=== PATIENT | male | born 1955 | race Caucasian/White ===

== ENCOUNTER 2018-01-02 01:25 | Emergency (ER) | payer OTHER ==
[~2018-01-02] VITALS: Ht 185.4 cm; Wt 86.2 kg
[~2018-01-02 01:25] MED LIST: CYCL10TA45 GT; NAPR-243 PO
--- OUTSIDE RECORDS SUMMARY | 2018-01-02 01:32 | XMS REPORT | Continuity of Care Document ---
Author Author [facility] Organization [facility] Address Unknown Phone Unavailable Allergies Active Description Code Type Severity Reaction Onset Reported/Identified Relationship to Patient Clinical Status Yes Penicillins [id number] Drug Allergy Moderate RASH 01/16/2012 Yes Sulfa (Sulfonamide Antibiotics) [id number] Drug Allergy Mild RASH 2011 Medications There is no data. Problems Date Dx Coded Attending Type Code Diagnosis Diagnosed By 10/11/2015 KEY GARCIA MD, Ot B42.89 10/11/2015 KEY GARCIA MD Ot F17.210 10/13/2015 KEY GARCIA MD, Ot B42.89 10/13/2015 KEY GARCIA MD Ot F17.210 03/02/2016 SALUD FERNANDEZ MD Ot M25.532 PAIN IN LEFT WRIST 03/02/2016 SALUD FERNANDEZ MD Ot M79.642 PAIN IN LEFT HAND 03/02/2016 SALUD FERNANDEZ MD Ot R22.32 LOCALIZED SWELLING, MASS AND LUMP, LEFT 03/03/2016 SALUD FERNANDEZ MD Ot M25.532 PAIN IN LEFT WRIST 03/03/2016 SALUD FERNANDEZ MD Ot M79.642 PAIN IN LEFT HAND 03/03/2016 SALUD FERNANDEZ MD Ot R22.32 LOCALIZED SWELLING, MASS AND LUMP, LEFT 03/16/2016 SALUD FERNANDEZ MD Ot M25.532 PAIN IN LEFT WRIST 03/16/2016 SALUD FERNANDEZ MD Ot M79.642 PAIN IN LEFT HAND 03/16/2016 SALUD FERNANDEZ MD Ot R22.32 LOCALIZED SWELLING, MASS AND LUMP, LEFT Procedures There is no data. Results There is no data. Encounters ACCT No. Visit Date/Time Discharge Status Pt. Type Provider Facility Loc./Unit Complaint [id number] 03/01/2016 18:19:00 03/01/2016 23:59:59 CLS Outpatient REBECCA GROSS, SALUD Moser [facility] RAD L HAND XRAY,L WRIST XRAY [id number] 10/11/2015 16:00:00 10/11/2015 17:38:00 DIS Emergency RADHA GROSS, KEY Moser [facility] ER [id number] 01/20/2014 16:29:00 01/20/2014 23:59:59 CLS Outpatient [id number] 03/15/2013 08:16:00 03/15/2013 23:59:59 CLS Outpatient [id number] 02/20/2013 19:08:00 02/21/2013 13:30:00 DIS Inpatient
--- NOTE | 2018-01-02 01:44 | ED Lower Extremity ---
General Chief Complaint: Lower Extremity Stated Complaint: LEFT FOOT PAIN-BOAT DROPPED ON FOOT Source: patient, spouse Exam Limitations: no limitations History of Present Illness Date Seen by Provider: Jan 02, 2018 Time Seen by Provider: 01:31 Initial Comments The patient presents to the ER by private conveyance with his significant other and chief complaint that Monday evening over 24 hours ago he was moving a boat around the garage and it fell off the german stand with the tongue landing across to his left foot. He is having pain more laterally in his foot as well as in the bilateral malleoli of his ankle. He did not get seen for this until tonight because the pain and swelling have progressively gotten worse. At first ice and Aleve were enough to control his pain and swelling. He has not been keeping the foot wrapped for elevated he did go to work yesterday. He does not have a history of fracture or injury to the left foot and ankle. He is able to walk on it. He is not on blood thinners. Allergies and Home Medications Allergies Coded Allergies: Penicillins (Verified Allergy, Intermediate, RASH, 01/16/12) Sulfa (Sulfonamide Antibiotics) (Verified Allergy, Mild, RASH, 01/16/12) Patient Home Medication List Home Medication List Reviewed: Yes Constitutional: No chills, No diaphoresis EENTM: No hearing loss, No ear pain Respiratory: No cough, No phlegm, No short of breath Cardiovascular: No chest pain, No palpitations Gastrointestinal: No abdominal pain, No nausea Past Iapyxqa-Ukasmw-Hrbwtz Hx Patient Social History Alcohol Use: Occasionally Uses Recreational Drug Use: No Smoking Status: Never a Smoker 2nd Hand Smoke Exposure: No Recent Foreign Travel: No Contact w/Someone Who Travel: No Recent Hopitalizations: No Immunizations Up To Date Tetanus Booster (TDap): Less than 5yrs Date of Influenza Vaccine: Apr 16, 2015 Seasonal Allergies Seasonal Allergies: No Past Medical History Surgeries: Yes Appendectomy, Orthopedic Respiratory: No Cardiac: No Neurological: No Reproductive Disorders: No Sexually Transmitted Disease: No HIV/AIDS: No Genitourinary: No Gastrointestinal: No Musculoskeletal: No Endocrine: No HEENT: No Cancer: No Psychosocial: No Integumentary: No Blood Disorders: No Adverse Reaction/Blood Tranf: No Family Medical History No Pertinent Family Hx Physical Exam Vital Signs Vital Signs - First Documented 01/02/18 01:30 Temp 97.6 Pulse 77 Resp 18 B/P (MAP) 169/103 (125) Pulse Ox 96 O2 Delivery Room Air Capillary Refill : General Appearance: WD/WN, no apparent distress Cardiovascular: normal peripheral pulses, regular rate, rhythm Respiratory: no respiratory distress, no accessory muscle use Legs: bilateral leg non-tender, bilateral leg normal inspection, bilateral leg normal range of motion, bilateral leg no evidence of injury Ankles: right ankle non-tender, right ankle normal inspection; bilateral ankle normal range of motion; right ankle no evidence of injury; left ankle bone tenderness (bilateral malleoli), left ankle ecchymosis, left ankle joint effusion, left ankle pain, left ankle soft tissue tenderness, left ankle swelling Feet: right foot non-tender, right foot normal inspection; bilateral foot normal range of motion; right foot no evidence of injury; left foot bone tenderness (third fourth and fifth metatarsals), left foot ecchymosis, left foot pain, left foot soft tissue tenderness, left foot swelling Neurologic/Tendon: normal sensation, normal motor functions, normal tendon functions, responds to pain, no evidence tendon injury Neurologic/Psychiatric: no motor/sensory deficits, alert, normal mood/affect, oriented x 3 Skin: warm/dry, ecchymosis Progress/Results/Core Measures Results/Orders My Orders Orders - ANTOINETTE PICKENS Foot, Left, 3 Views (01/02/18 01:36) Ankle, Left, 3 Views (01/02/18 01:36) Hydrocodone/Apap 5/325 Tablet (Lortab 5 (01/02/18 01:45) Medications Given in ED Current Medications Medications Dose Ordered Sig/Luisito Route Start Time Stop Time Status Last Admin Dose Admin Acetaminophen/ Hydrocodone Bitart 1 tab ONCE ONCE PO 01/02/18 01:45 01/02/18 01:46 DC 01/02/18 01:54 1 TAB Vital Signs/I&O 01/02/18 01:30 Temp 97.6 Pulse 77 Resp 18 B/P (MAP) 169/103 (125) Pulse Ox 96 O2 Delivery Room Air Progress Progress Note : Time: 01:41 Progress Note We have offered him some hydrocodone for his pain and we'll obtain x-rays of the ankle and foot. Diagnostic Imaging Diagonstic Imaging: Xray Plain Films/CT/US/NM/MRI: ankle (and left foot) Comments Soft tissue swelling seen but no overt osseous abnormality noted on any ankle and foot x-ray. Reviewed: Reviewed by Me Departure Impression Primary Impression: Contusion of ankle Qualified Codes: S90.02XA - Contusion of left ankle, initial encounter Additional Impression: Contusion of foot Qualified Codes: S90.32XA - Contusion of left foot, initial encounter Disposition: 01 HOME, SELF-CARE Condition: Stable Departure-Patient Inst. Decision time for Depature: 01:56 Referrals: IRA HI RICK D MD (PCP) Primary Care Physician Patient Instructions: Ankle Sprain (DC) Add. Discharge Instructions: Keep the foot and ankle elevated when possible. Apply a Abner bandage for compression and use ice for 20 minutes every 3-4 hours as needed for swelling or pain. You can also use Tylenol 650 mg every 8 hours and ibuprofen 800 mg every 8 hours or 2 Aleve twice a day instead of the ibuprofen. If you have breakthrough pain you can use one tablet of hydrocodone every 6 hours as needed. And hydrocodone will cause drowsiness and constipation so you should not mix it with alcohol and be careful when driving long distances or operating heavy machinery. You can use MiraLAX 1 capful in 6-8 ounces of fluids every day to stay regular or reverse constipation that is typical with hydrocodone. Your pain and swelling is not improved within the first 2-4 weeks you can follow up with your primary care doctor or Dr. Hi, orthopedic surgeon from [facility]. All discharge instructions reviewed with patient and/or family. Voiced understanding. Scripts Hydrocodone Bit/Acetaminophen (Hydrocodone/Acetaminophen 5/325mg Tablet) 1 Tab Tab 1-2 EACH PO Q6H PRN for BREAKTHROUGH PAIN, #15 TAB 0 Refills Prov: ANTOINETTE PICKENS 01/02/18 Work/School Note: Work Release Form Date Seen in the Emergency Department: Jan 02, 2018 Return to Work: Jan 02, 2018 Restrictions: Need Release from Doctor Other Restrictions Listed Below: Elevate ankle when possible. Apply ice for 20 minutes every 4 h for 2 days. Copy Copies To 1: IRA HI TITUS J Jan 02, 2018 01:44
[2018-01-02] MEDS ORDERED: HYDROcodone/APAP 5 MG/325 MG (LORTAB) TAB PO ONE (01:45)
[2018-01-02] MEDS ORDERED: ACHD5005 PO (01:58)
[2018-01-02 02:05] VITALS: BP 169/103
--- NOTE | 2018-01-02 07:11 | Diagnostic Imaging Report ---
INDICATION: Left foot injury and pain COMPARISON: None FINDINGS: 3 views of the left foot demonstrate no fracture or dislocation. Articular surfaces are normal. No foreign body seen. IMPRESSION: No fracture or dislocation. Dictated by: Dictated on workstation # [id number]
--- NOTE | 2018-01-02 07:27 | Diagnostic Imaging Report ---
INDICATION: Left ankle trauma, pain. COMPARISON: None. FINDINGS: Three views of the left ankle demonstrate no fracture or dislocation. The ankle mortise is intact. Normal variant os cuboides is present. There is no foreign body. IMPRESSION: No acute fracture or dislocation. Dictated by: Dictated on workstation # [id number]
== END 2018-01-02 02:01 | disposition home or self-care (01) ==
LOC: EDUNIT# 01:25 → ER 01:28
DX: S90.32XA Contusion of left foot, initial encounter (principal); S90.02XA Contusion of left ankle, initial encounter; Z90.49 Acquired absence of other specified parts of digestive tract; Z98.890 Other specified postprocedural states; Z88.0 Allergy status to penicillin; Z88.2 Allergy status to sulfonamides; W17.89XA Other fall from one level to another, initial encounter
CPT/HCPCS: 73610; 73630

== ENCOUNTER → 2018-01-12 | Outpatient (CLI) | payer OTHER ==
[~2018-01-12] MED LIST changes: +ACHD5005 PO
--- NOTE | 2018-01-12 09:06 | Diagnostic Imaging Report ---
PROCEDURE: MR imaging left lower extremity without contrast. TECHNIQUE: Multiplanar, multisequence non contrast enhanced MR imaging of the left lower extremity was accomplished. INDICATION: Dorsal foot pain, toe bruising, crush injury sustained 12/31/2017. The tarsometatarsal relationships and Lief front ligament intact. There is extensive subcutaneous edema and soft tissue swelling over the dorsum of the midfoot and anterolateral ankle. No bone contusion, marrow edema, osteochondral injury or fracture pattern however is identified. There is no evidence for tendon or ligament rupture. IMPRESSION: Extensive dorsal soft tissue swelling about the lateral ankle and lateral midfoot. However no discrete drainable fluid collection, bone contusion, fracture, tendon or ligament rupture and no malalignment dislocation or subluxation. Dictated by: Dictated on workstation # [id number]
--- NOTE | 2018-01-12 09:14 | Diagnostic Imaging Report ---
PROCEDURE: MRI left joint lower extremity without contrast. TECHNIQUE: Multiplanar, multisequence non contrast-enhanced MRI of the left lower extremity was accomplished. INDICATION: Crush injury with dorsal foot and lateral ankle pain. MRI foot performed and dictated separately. FINDINGS: Extensive superficial subcutaneous edema about the lateral aspect of the visualized lower leg extending into the anterolateral dorsum of the hind and midfoot. The peroneal tendons, however, appeared intact and in normal position. The distal fibula laterally shows some mild focal marrow edema likely mild contusive changes but no convincing evidence for its fracture. The lateral and medial ligamentous structures crossing the ankle appeared intact. The plafond and talar dome intact. The medial and posterior malleoli intact. Talus and calcaneus and the articular surface is smooth and intact. The anterior and posterior subtalar joints unremarkable. An incidental nonedematous os trigonum posteriorly noted. The medial, lateral, anterior and posterior tendons crossing the ankle all appeared intact. IMPRESSION: Extensive lateral subcutaneous edema and swelling. Very mild focal contusive-type edema to the lateral margin of the distal fibula without an appreciable fracture. However, no tendon or ligament rupture or dislocation. No other abnormality. Dictated by: Dictated on workstation # [id number]
== END ==
LOC: RAD 06:57
DX: S90.122A Contusion of left lesser toe(s) without damage to nail, initial encounter (principal)
CPT/HCPCS: 73721

== ENCOUNTER 2018-08-10 16:36 | Outpatient (CLI) | payer OTHER | END 2018-08-10 16:47 | disposition home or self-care (01) | LOC: RAD 16:36 | DX: G47.31 Primary central sleep apnea (principal); G47.10 Hypersomnia, unspecified; R06.83 Snoring ==

== ENCOUNTER → 2018-11-12 | Outpatient (CLI) | payer OTHER ==
--- NOTE | 2018-11-12 17:08 | Diagnostic Imaging Report ---
PROCEDURE: US left lower extremity venous. TECHNIQUE: Multiple real-time grayscale images were obtained over the left lower extremity in various projections. Additional duplex Doppler and color Doppler images were also obtained. INDICATION: Left leg swelling FINDINGS: The veins have good color filling and compressibility. There is normal phasic and augmented flow. IMPRESSION: Negative venous Doppler of the left leg Dictated by: Dictated on workstation # [id number]
== END ==
LOC: RAD 16:36
PROVIDERS: ATTEND Nurse Practitioner Family
DX: I83.812 Varicose veins of left lower extremity with pain (principal)

== ENCOUNTER → 2018-11-15 | Outpatient (CLI) | payer OTHER ==
--- NOTE | 2018-11-15 18:37 | Diagnostic Imaging Report ---
INDICATION: Pain and swelling in the left leg. TIME OF EXAM: 6:23 p.m. EXAMINATION: AP and lateral views of the left tibia and fibula were obtained. FINDINGS: Alignment at the knee and ankle appear normal. Tibia and fibula are intact. No fractures are seen. Soft tissues are unremarkable. IMPRESSION: No acute bony abnormality is detected. Dictated by: Dictated on workstation # [id number]
[2018-11-15 18:43] LABS: BASOPHILS # (AUTO) 0.1 10^3/uL (0.0-0.1); BASOPHILS % (AUTO) 1 % (0-10); EOSINOPHILS # (AUTO) 0.2 10^3/uL (0.0-0.3); EOSINOPHILS % (AUTO) 2 % (0-10); HEMATOCRIT 42 % (40-54); HEMOGLOBIN 14.6 G/DL (13.3-17.7); LYMPHOCYTES # (AUTO) 1.1 X 10^3 (1.0-4.0); LYMPHOCYTES % (AUTO) 15 % (12-44); MEAN CORPUSCULAR HEMOGLOBIN 31 PG (25-34); MEAN CORPUSCULAR HGB CONC 35 G/DL (32-36); MEAN CORPUSCULAR VOLUME 88 FL (80-99); MEAN PLATELET VOLUME 9.5 FL (7.4-10.4); MONOCYTES # (AUTO) 0.7 X 10^3 (0.0-1.0); MONOCYTES % (AUTO) 10 % (0-12); NEUTROPHILS # (AUTO) 5.4 X 10^3 (1.8-7.8); NEUTROPHILS % (AUTO) 73 % (42-75); PLATELET COUNT 215 10^3/uL (130-400); RED CELL DISTRIBUTION WIDTH 13.2 % (10.0-14.5); WHITE BLOOD COUNT 7.4 10^3/uL (4.3-11.0)
[2018-11-15 18:55] LABS: ALANINE AMINOTRANSFERASE 26 U/L (0-55); ALBUMIN 4.7 GM/DL (3.2-4.5); ALKALINE PHOSPHATASE 52 U/L (40-136); BILIRUBIN,TOTAL 0.8 MG/DL (0.1-1.0); BUN/CREATININE RATIO 22; CALCIUM 9.7 MG/DL (8.5-10.1); CARBON DIOXIDE 20 MMOL/L (21-32); CHLORIDE 108 MMOL/L (98-107); CREATININE SERUM 0.96 MG/DL (0.60-1.30); GFR ESTIMATED > 60; GLUCOSE 89 MG/DL (70-105); POTASSIUM 4.2 MMOL/L (3.6-5.0); SODIUM 140 MMOL/L (135-145); TOTAL PROTEIN 7.1 GM/DL (6.4-8.2)
[2018-11-15 18:57] LABS: FIBRIN DEGRADATION PRODUCTS 0.32 UG/ML (0.00-0.49); INR 1.1 (0.8-1.4); PROTHROMBIN TIME PATIENT 14.5 SEC (12.2-14.7)
== END ==
LOC: RAD 18:15
PROVIDERS: ATTEND Nurse Practitioner Family
DX: I83.812 Varicose veins of left lower extremity with pain (principal)
CPT/HCPCS: 36415; 73590; 80053; 85025; 85379; 85610

== ENCOUNTER 2020-05-21 17:22 | Emergency (ER) | payer OTHER ==
[~2020-05-21] VITALS: Ht 185 cm; Wt 97.5 kg
[2020-05-21 18:13] LABS: CHLORIDE 105 MMOL/L (98-107); POTASSIUM 4.1 MMOL/L (3.6-5.0); SODIUM 140 MMOL/L (135-145)
[2020-05-21 18:14] LABS: CALCIUM 9.2 MG/DL (8.5-10.1); GLUCOSE 93 MG/DL (70-105)
[2020-05-21 18:16] LABS: CARBON DIOXIDE 24 MMOL/L (21-32)
[2020-05-21 18:17] LABS: BASOPHILS # (AUTO) 0.1 10^3/uL (0.0-0.1); BASOPHILS % (AUTO) 1 % (0-10); EOSINOPHILS # (AUTO) 0.2 10^3/uL (0.0-0.3); EOSINOPHILS % (AUTO) 2 % (0-10); HEMATOCRIT 43 % (40-54); HEMOGLOBIN 14.5 g/dL (13.3-17.7); LYMPHOCYTES # (AUTO) 1.2 10^3/uL (1.0-4.0); LYMPHOCYTES % (AUTO) 17 % (12-44); MEAN CORPUSCULAR HEMOGLOBIN 31 pg (25-34); MEAN CORPUSCULAR HGB CONC 34 g/dL (32-36); MEAN CORPUSCULAR VOLUME 91 fL (80-99); MEAN PLATELET VOLUME 9.4 fL (9.0-12.2); MONOCYTES # (AUTO) 0.7 10^3/uL (0.0-1.0); MONOCYTES % (AUTO) 9 % (0-12); NEUTROPHILS % (AUTO) 70 % (42-75); PLATELET COUNT 224 10^3/uL (130-400); WHITE BLOOD COUNT 7.1 10^3/uL (4.3-11.0)
[2020-05-21 18:18] LABS: CREATININE SERUM 1.05 MG/DL (0.60-1.30); GFR ESTIMATED > 60
[2020-05-21 18:19] LABS: BUN/CREATININE RATIO 19
[2020-05-21 18:23] LABS: PROTHROMBIN TIME PATIENT 13.5 SEC (12.2-14.7)
[2020-05-21 18:26] LABS: CREATINE KINASE MB 1.8 NG/ML (<6.6)
[2020-05-21] MEDS ORDERED: APIX5TAB PO (19:13)
--- NOTE | 2020-05-21 19:14 | ED Cardiac General ---
History of Present Illness General Chief Complaint: Cardiac/General Problems Stated Complaint: SOA/CHEST PAIN/ARYTHMIAS Nursing Triage Note: PT ARRIVES TO ER WITH C/O CHEST PAIN FOR TWO WEEKS RADIATING TO L ARM AND NECK AND BACK PAIN Source: patient Exam Limitations: no limitations History of Present Illness Date Seen by Provider: May 21, 2020 Time Seen by Provider: 18:00 Initial Comments Patient arrives to the ER by private conveyance from work with chief complaint that for the past 2 weeks she's had some chest discomfort and shortness of breath occasionally. He brought this up to the nurse practitioner at his work and she did an EKG demonstrating atrial fibrillation and rate control. Patient does not have any other previous known medical history nor does he take any medicines but he does occasionally follow with Dr. Fernandez. He called Dr. Fernandez's office and made a referral to the financial planning adviser. The nurse practitioner insisted he come to the ER to be taken care of. He's not having any discomfort nausea sweats chills shortness of breath or weakness at the time of his presentation and the previous ER doctor discussed Eliquis as well as put in for some labs including troponin. His blood pressure was reported to be systolic of 110 on arrival. Allergies and Home Medications Allergies Coded Allergies: Penicillins (Verified Allergy, Intermediate, RASH, 01/16/12) Sulfa (Sulfonamide Antibiotics) (Verified Allergy, Mild, RASH, 01/16/12) Home Medications Hydrocodone Bit/Acetaminophen 1 Tab Tab, 1-2 EACH PO Q6H PRN for BREAKTHROUGH PAIN Prescribed by: ANTOINETTE PICKENS on 01/02/18 0158 Patient Home Medication List Home Medication List Reviewed: Yes Review of Systems Review of Systems Constitutional: No chills, No diaphoresis EENTM: No Blurred Vision, No Double Vision Respiratory: Denies Cough; Shortness of Air Cardiovascular: See HPI; Denies Chest Pain, Denies Edema, Denies Irregular Heart Rate, Denies Lightheadedness, Denies Palpitations, Denies Syncope Gastrointestinal: Denies Abdomen Distended, Denies Abdominal Pain Genitourinary: Denies Burning, Denies Discharge Musculoskeletal: No back pain, No joint pain Skin: No pruritus, No rash Psychiatric/Neurological: Denies Headache, Denies Numbness All Other Systems Reviewed Negative Unless Noted: Yes Past Engyvhe-Bojxrj-Xzfibi Hx Patient Social History Alcohol Use: Rarely Uses Alcohol Beverage of Choice: Beer Recreational Drug Use: No (OCCASIONAL CIGAR) Smoking Status: Never a Smoker 2nd Hand Smoke Exposure: No Recent Foreign Travel: No Contact w/Someone Who Travel: No Recent Infectious Disease Expo: No Recent Hopitalizations: No Immunizations Up To Date Tetanus Booster (TDap): Less than 5yrs Date of Influenza Vaccine: May 10, 2020 Seasonal Allergies Seasonal Allergies: No Past Medical History Surgeries: Yes Appendectomy, Orthopedic Respiratory: No Cardiac: No Neurological: No Reproductive Disorders: No Sexually Transmitted Disease: No HIV/AIDS: No Genitourinary: No Gastrointestinal: No Musculoskeletal: No Endocrine: No HEENT: No Cancer: No Psychosocial: No Integumentary: No Blood Disorders: No Adverse Reaction/Blood Tranf: No Family Medical History No Pertinent Family Hx Physical Exam Vital Signs Vital Signs - First Documented 05/21/20 17:25 Temp 37.0 Pulse 79 B/P (MAP) 184/118 (140) Pulse Ox 96 Capillary Refill : Less Than 3 Seconds Height, Weight, BMI Height: 6'1" Weight: 190lbs. 0oz. 86.373149sh; 28.00 BMI Method:Stated General Appearance: No Apparent Distress, WD/WN HEENT: PERRL/EOMI, Pharynx Normal, Moist Mucous Membranes Neck: Full Range of Motion, Normal Inspection Respiratory: Lungs Clear, Normal Breath Sounds, No Accessory Muscle Use, No Respiratory Distress Cardiovascular: No Edema, No Murmur, Irregularly Irregular Gastrointestinal: Non Tender, Soft Extremity: Normal Capillary Refill, Normal Inspection, No Pedal Edema Neurologic/Psychiatric: Alert, Oriented x3 Skin: Normal Color, Warm/Dry Progress/Results/Core Measures Results/Orders Lab Results Laboratory Tests Test 05/21/20 17:38 Range/Units White Blood Count 7.1 4.3-11.0 10^3/uL Red Blood Count 4.68 4.30-5.52 10^6/uL Hemoglobin 14.5 13.3-17.7 g/dL Hematocrit 43 40-54 % Mean Corpuscular Volume 91 80-99 fL Mean Corpuscular Hemoglobin 31 25-34 pg Mean Corpuscular Hemoglobin Concent 34 32-36 g/dL Red Cell Distribution Width 13.1 10.0-14.5 % Platelet Count 224 130-400 10^3/uL Mean Platelet Volume 9.4 9.0-12.2 fL Immature Granulocyte % (Auto) 0 % Neutrophils (%) (Auto) 70 42-75 % Lymphocytes (%) (Auto) 17 12-44 % Monocytes (%) (Auto) 9 0-12 % Eosinophils (%) (Auto) 2 0-10 % Basophils (%) (Auto) 1 0-10 % Neutrophils # (Auto) 5.0 1.8-7.8 10^3/uL Lymphocytes # (Auto) 1.2 1.0-4.0 10^3/uL Monocytes # (Auto) 0.7 0.0-1.0 10^3/uL Eosinophils # (Auto) 0.2 0.0-0.3 10^3/uL Basophils # (Auto) 0.1 0.0-0.1 10^3/uL Immature Granulocyte # (Auto) 0.0 0.0-0.1 10^3/uL Prothrombin Time 13.5 12.2-14.7 SEC INR Comment 1.0 0.8-1.4 Activated Partial Thromboplast Time 29 24-35 SEC Sodium Level 140 135-145 MMOL/L Potassium Level 4.1 3.6-5.0 MMOL/L Chloride Level 105 98-107 MMOL/L Carbon Dioxide Level 24 21-32 MMOL/L Anion Gap 11 5-14 MMOL/L Blood Urea Nitrogen 20 H 7-18 MG/DL Creatinine 1.05 0.60-1.30 MG/DL Estimat Glomerular Filtration Rate > 60 BUN/Creatinine Ratio 19 Glucose Level 93 70-105 MG/DL Calcium Level 9.2 8.5-10.1 MG/DL Creatine Kinase MB 1.8 <6.6 NG/ML Troponin I < 0.028 <0.028 NG/ML Vital Signs/I&O 05/21/20 17:25 Temp 37.0 Pulse 79 B/P (MAP) 184/118 (140) Pulse Ox 96 Blood Pressure Mean: 140 Progress Progress Note : Time: 19:10 Progress Note On my examination the patient does not have any discomfort. I agree with the history obtained by the previous physician as well as workup plan. He has a referral to follow up with Dr. Mahajan early next week from Dr. Fernandez's office. We are going to start him on Eliquis. We did extensive teaching. His initial troponin is negative after 2 weeks of chest discomfort. He is not in any discomfort now so no further testing as appropriate tonight. Plan to let him discharged home and start Eliquis in the morning. While at rest his blood pressure did come down significantly where his diastolic is right around the 100s millimeters mercury. We did discuss starting some amlodipine and he would prefer to hold off and let his primary care or financial planning adviser initiate blood pressure medicine if necessary. This is acceptable. Departure Impression Primary Impression: Atrial fibrillation by electrocardiogram Disposition: HOME, SELF-CARE Condition: Stable Departure-Patient Inst. Decision time for Depature: 19:11 Referrals: SALUD FERNANDEZ MD (PCP/Family) Primary Care Physician Patient Instructions: Atrial Fibrillation (DC), Cardiac Catheter Ablation, Going Home on Blood Thinners , Medicines for Atrial Fibrillation Add. Discharge Instructions: Plan to follow up with Dr. Mahajan, cardiology by next week. Return to the ER if you're having increasing or changing chest pain, nausea, sweats or other worrisome symptoms. 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 Avoid any unnecessary head injuries. Stay off ladders, scaffolding, trees and wear a helmet when appropriate. Wearing your seatbelt when in a car. All discharge instructions reviewed with patient and/or family. Voiced understanding. Scripts Apixaban (Eliquis) 5 Mg Tablet 5 MG PO BID for 30 Days, #60 TAB 0 Refills Prov: ANTOINETTE PICKENS 05/21/20 Copy Copies To 1: Jennie MAHAJAN MD; SALUD FERNANDEZ MD, TITUS J May 21, 2020 19:13
--- NOTE | 2020-05-21 19:22 | Diagnostic Imaging Report ---
EXAMINATION: Chest 1 view. HISTORY: chest pain COMPARISON: Chest radiograph 02/20/2013. FINDINGS: Heart size and pulmonary vasculature are normal. The lungs are clear without consolidation, pleural effusion, or pneumothorax. The osseous structures are intact. Partially visualized cervical fusion hardware. IMPRESSION: No acute radiographic abnormality in the chest. Dictated by: Dictated on workstation # [id number]
[2020-05-21 19:30] VITALS: BP 145/112
== END 2020-05-21 19:30 | disposition home or self-care (01) ==
LOC: EDUNIT# 17:22 → ER 17:24
DX: I48.91 Unspecified atrial fibrillation (principal); Z88.0 Allergy status to penicillin; Z88.2 Allergy status to sulfonamides
CPT/HCPCS: 36415; 71045; 80048; 82553; 84484; 85025; 85610; 85730; 93005

== ENCOUNTER → 2020-06-16 | Outpatient (CLI) | payer OTHER ==
[~2020-06-16] VITALS: Ht 185 cm; Wt 98.0 kg
[~2020-06-16] MED LIST changes: +APIX5TAB PO; +REGADENOSON 0.4 MG/5 ML SYR (LEXISCAN) IV ONE
[2020-06-16] MEDS: CATHETER FLUSH 10 ML SYR IV PRN ×2 (12:33→13:23)
[2020-06-16 13:14] VITALS: BP 144/97
--- NOTE | 2020-06-19 19:19 | STRESS TEST ---
DATE OF SERVICE: 06/16/2020 RESTING AND POST REGADENOSON TECHNETIUM-99M TETROFOSMIN SPECT CT IMAGING ORDERING PHYSICIAN: Dr. Ashton. PRIMARY PHYSICIAN: Dr. Andrews CLINICAL DIAGNOSIS: Chest pain. Baseline images were carried out after injection of 10.25 mCi of technetium-99m Tetrofosmin. This was followed by 0.4 mg regadenoson and 32.1 mCi of technetium-99m Tetrofosmin for stress imaging. The electrocardiogram showed atrial fibrillation with relatively controlled ventricular response. The electrocardiogram did not change significantly with regadenoson infusion. Review of images at rest and following stress does not indicate any significant perfusion defects consistent with significant myocardial ischemia or infarction. Gated images show normal global left ventricular systolic function with normal regional wall motion. Left ventricular ejection fraction is calculated to be 59%. Left ventricular end diastolic volume is 76 mL. TID is absent (1.1). CONCLUSIONS: 1. No evidence of any significant myocardial ischemia or infarction on this study. 2. Normal regional wall motion. 3. Normal global left ventricular systolic function with a calculated ejection fraction of 59%. 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
== END ==
LOC: CARD 12:22
PROVIDERS: ATTEND Internal Medicine Cardiovascular Disease
DX: R07.89 Other chest pain (principal)
CPT/HCPCS: 78452; 93017; A9502

== ENCOUNTER → 2020-06-19 | Outpatient (CLI) | payer OTHER ==
[~2020-06-19] MED LIST changes: -REGADENOSON 0.4 MG/5 ML SYR (LEXISCAN) IV ONE
== END ==
LOC: CARD 11:00
PROVIDERS: ATTEND Internal Medicine Cardiovascular Disease
DX: I34.0 Nonrheumatic mitral (valve) insufficiency (principal); I48.19 Other persistent atrial fibrillation
CPT/HCPCS: 36415; 84443; 93225; 93226; 93306

== ENCOUNTER → 2020-08-10 | Outpatient (CLI) | payer OTHER | LOC: LABNPT 06:55 | PROVIDERS: ATTEND Student in an Organized Health Care Education/Training Program | DX: Z20.822 Contact with and (suspected) exposure to COVID-19 (principal) | CPT/HCPCS: 87635 ==

== ENCOUNTER → 2020-08-31 | Outpatient (CLI) | payer OTHER | LOC: LABNPT 07:17 | PROVIDERS: ATTEND Student in an Organized Health Care Education/Training Program | DX: Z20.822 Contact with and (suspected) exposure to COVID-19 (principal) | CPT/HCPCS: 87635 ==

== ENCOUNTER 2022-02-24 05:39 | Outpatient (CLI) | payer OTHER ==
[~2022-02-24] VITALS: Ht 185.4 cm; Wt 91.2 kg
[2022-02-24] MEDS ORDERED: ASPI-999 PO (09:03)
[2022-02-24] MEDS ORDERED: MTP25TSR PO (09:03)
== END 2022-02-24 09:12 | disposition home or self-care (01) ==
LOC: PREOP 05:39
PROVIDERS: ATTEND Internal Medicine
DX: Z01.818 Encounter for other preprocedural examination (principal)

== ENCOUNTER 2022-03-04 10:07 | Day surgery (SDC) | payer OTHER ==
--- NOTE | 2022-02-24 09:08 | HISTORY AND PHYSICAL ---
DATE OF SERVICE: COLONOSCOPY HISTORY AND PHYSICAL HISTORY OF PRESENT ILLNESS: The patient is a 66-year-old white male referred by Dr. Peterson for screening colonoscopy, deemed to be of higher than average risk as there is a family history of colon cancer, index case was his mother, who was diagnosed around 59 years of age and succumbed to the disease at the age of 61. He denies bowel habit change, bright red blood per rectum, melena or abdominal pain. He reports that he has been feeling well. PAST MEDICAL HISTORY: Significant for atrial fibrillation. He underwent ablation in February 2021 with no symptomatic recurrence. He has been aware of since. He has been on aspirin daily off of other anticoagulant therapy and takes metoprolol ER 25 mg, no other medication. PAST SURGICAL HISTORY: Significant for an appendectomy in 2011, the aforementioned cardiac ablation. He had cervical fusion performed in 2012, and lumbar surgery in 2013. SOCIAL HISTORY: He is , retired occasionally smokes a cigar. No cigarette smoking history. Reports about 1 to 4 drinks per week, qualifying for moderate alcohol consumption. FAMILY HISTORY: Father had a history of cardiovascular disease and mother's aforementioned history of colon cancer and one sister with breast cancer and also believes she had colon polyps on her colonoscopy that were removed. REVIEW OF SYSTEMS: CONSTITUTIONAL: Denies night sweats, chills, fever, change in weight. PULMONARY: Denies cough, wheezing or shortness of breath. CARDIOVASCULAR: Denies palpitations, chest discomfort, orthopnea, PND or pedal edema. GASTROINTESTINAL: As noted in the HPI. PHYSICAL EXAMINATION: GENERAL: Reveals a white male, appears to be in no acute distress. VITAL SIGNS: Weight 201 pounds, blood pressure 120/72. HEENT: Unremarkable. CHEST: Clear to auscultation. CARDIOVASCULAR: Reveals a regular rate and rhythm without murmur, S3 or S4. ABDOMEN: Soft, supple without mass, organomegaly or tenderness. EXTREMITIES: Reveal no cyanosis, clubbing or edema. ASSESSMENT AND PLAN: The patient is being set up for screening colonoscopy, deemed to be of higher than average risk as his mother was diagnosed with colon cancer at the age of 59. Prep instructions were given. Electronic medical record was reviewed as well as a Dr. Peterson's office notes. I thank you for the referral of this pleasant gentleman. Job ID: [id number] DocumentID: [id number] Dictated Date: 02/23/2022 16:06:42 Preschool Assistant Principal Date: 02/23/2022 16:28:46 Dictated By: ALFREDO CHARLES MD MTDD
[2022-03-04] VITALS (7 sets, daily range): BP systolic 101–152; BP diastolic 58–89
[~2022-03-04] VITALS: Ht 185.4 cm; Wt 91.2 kg
[~2022-03-04 10:07] MED LIST changes: +ASPI-999 PO; +MTP25TSR PO
[2022-03-04] MEDS ORDERED: LACTATED RINGERS 1,000 ML IV STA (10:16)
--- NOTE | 2022-03-04 10:28 | Pre-Op Note & Conscious Sedat ---
Pre-Operative Progress Note Date H&P Reviewed: Mar 04, 2022 Time H&P Reviewed: 10:27 History & Physical: H&P Reviewed, Patient Examed, No changes noted Pre-Op Diagnosis: screening colon Conscious Sedation Pre-Proced ASA Score 2 For ASA 3 and 4: Consider anesthesia and medical clearance. Also, for patients with a history of failed moderate sedation consider anesthesia. Airway Lungs Heart ASA score ASA 1: a normal healthy patient ASA 2: a patient with a mild systemic disease (mid diabetes, controlled hypertension, obesity ASA 3: a patient with a severe systemic disease that limits activity (angina, COPD, prior Myocardial infarction) ASA 4: a patient with an incapacitating disease that is a constant threat to life (CHF, renal failure) ASA 5: a moribund patient not expected to survive 24 hrs. (ruptured aneurysm) ASA 6: a declared brain- patient whose organs are being harvested. For emergent operations, add the letter E after the classification Mallampati Classification Grade 2 Sedation Plan Analgesia, Amnesia, Plan communicated to team members, Discussed options with patient/fam, Discussed risks with patient/fam The patient is an appropriate candidate to undergo the planned procedure, sedation, and anesthesia. The patient immediately re-assessed prior to indication. ALFREDO CHARLES MD Mar 04, 2022 10:28
[2022-03-04] MEDS ORDERED: PROPOFOL INJECTION 50 ML IV ONE (10:58)
[2022-03-04] MEDS ORDERED: MIDAZOLAM 2 MG/2 ML (VERSED) VIAL ONE (10:58)
--- NOTE | 2022-03-04 11:25 | Progress Note-Post Operative ---
Post-Procedure Note Physician (s)/Dairy Scientist (s) Physician ALFREDO CHARLES MD Pre-Procedure Diagnosis Pre-Procedure Diagnosis: screening colon Post-Procedure Diagnosis Post-operative diagnosis: distal sigmoid and hepatic flexure polyps removed by hot forceps otherwise normal colon. ALFREDO CHARLES MD Mar 04, 2022 11:25
--- NOTE | 2022-03-04 11:31 | Anesthesia-General Post-Op ---
MAC Patient Condition Mental Status/LOC: Same as Preop Cardiovascular: Satisfactory Nausea/Vomiting: Absent Respiratory: Satisfactory Pain: Controlled Complications: Absent Post Op Complications Complications None Follow Up Care/Instructions Patient Instructions None needed. Anesthesiology Discharge Order Discharge Order Patient is doing well, no complaints, stable vital signs, no apparent adverse anesthesia problems. No complications reported per nursing. TORIE NUNO CRNA Mar 04, 2022 11:31
--- NOTE | 2022-03-04 20:08 | OPERATIVE REPORT ---
DATE OF SERVICE: COLONOSCOPY SUMMARY INDICATION FOR THE PROCEDURE: Screening, family history of colon cancer. DESCRIPTION OF PROCEDURE: The patient was placed in the left lateral decubitus position. Prior to undergoing colonoscopy, digital rectal evaluation was performed. Anal sphincter tone was normal. Perianal reflexes intact. The prostate was unremarkable to digital inspection. No abnormalities were noted on digital inspection of anal canal or distal rectal vault. The colonoscope was then inserted into the rectum and under direct visualization advanced to cecum. The cecum was identified by identification of ileocecal valve and cecal strap and appendiceal orifice. Photographic documentation was obtained. Careful inspection was made as colonoscope withdrawn. Quality of prep was good. FINDINGS: There was no evidence for internal or external hemorrhoids and the rectum was unremarkable. Present in the distal sigmoid colon was a diminutive hyperplastic-appearing polyp measuring 4 mm in size. It was biopsied and ablated and submitted for histopathology. There was no subsequent blood loss. The sigmoid colon, descending colon, splenic flexure, transverse colon and hepatic flexure were unremarkable, save for another 4 mm sessile polyp noted at hepatic flexure. It was biopsied and ablated. The cecum and the colon was unremarkable. ASSESSMENT: Two small sessile polyps were removed via hot forceps, one from the distal sigmoid and the other one from the hepatic flexure. As long as there is no surprise on histopathology report considering family history, I would advocate consideration for repeat screening colonoscopy in 5 years. Job ID: [id number] DocumentID: [id number] Dictated Date: 03/04/2022 11:21:42 Mat Cleaning Machine Operator Date: 03/04/2022 20:07:33 Dictated By: ALFREDO CHARLES MD
== END 2022-03-04 12:15 | disposition home or self-care (01) ==
LOC: ENDO 10:07
PROVIDERS: ATTEND Internal Medicine
DX: Z12.11 Encounter for screening for malignant neoplasm of colon (principal); D12.5 Benign neoplasm of sigmoid colon; D12.3 Benign neoplasm of transverse colon; Z80.0 Family history of malignant neoplasm of digestive organs; F17.290 Nicotine dependence, other tobacco product, uncomplicated
CPT/HCPCS: 88305